=== PATIENT | female | born 1970 | race Caucasian/White ===

== ENCOUNTER 2020-11-05 21:39 | Emergency (ER) | payer MEDICAID, OTHER ==
[~2020-11-05] VITALS: Ht 157.5 cm; Wt 73.0 kg
[2020-11-05 22:04] VITALS: BP 143/85
--- NOTE | 2020-11-05 22:14 | NUR ---
PT AMBULATORY TO BED #10
--- NOTE | 2020-11-05 22:19 | NUR ---
50 Y/O FEMALE C/O BURNING PULSATING PAIN IN BACK OF LEFT UPPER LEG X1.5 WEEKS. NOTED WARM TO TOUCH, REDNESS AND SWELLING. PT STATES 7/10 PAIN, WORSENING AT NIGHT. MEDHX: DVT IN LEFT LEG 3 YRS AGO.
--- NOTE | 2020-11-05 22:45 | NUR ---
DR DHILLON AT BEDSIDE EXAMINING PT
--- NOTE | 2020-11-05 22:55 | NUR ---
ULTRASOUND AT BEDSIDE
--- NOTE | 2020-11-06 00:07 | NUR ---
DR KIM AT BEDSIDE
[2020-11-06] MEDS ORDERED: IBUP-2213 PO (00:11)
[2020-11-06] MEDS ORDERED: CEPH500C16 PO (00:11)
[2020-11-06 00:15] VITALS: BP 143/85
--- NOTE | 2020-11-06 00:15 | NUR ---
Patient discharged with v/s stable. Written and verbal after care instructions given and explained. Patient alert, oriented and verbalized understanding of instructions. Ambulatory with steady gait. All questions addressed prior to discharge. ID band removed. Patient advised to follow up with PMD. Rx of KEFLEX AND IBUPROFEN given. Patient educated on indication of medication including possible reaction and side effects. Opportunity to ask questions provided and answered.
== END 2020-11-06 00:15 | disposition home or self-care (01) ==
LOC: MED 21:39
DX: M79.605 Pain in left leg (principal); R60.0 Localized edema
CPT/HCPCS: 93971; 99284